=== PATIENT | male | born 1960 | race Caucasian/White ===

== ENCOUNTER 2017-06-08 16:10 | Emergency (ER) | payer MEDICAID ==
[~2017-06-08] VITALS: Ht 182.9 cm; Wt 100.7 kg
--- OUTSIDE RECORDS SUMMARY | 2017-06-08 16:25 | External Medical Summary Rpt | CCD ---
Author Author , XIANG OTOOLE Address Unknown Phone Care Team Providers Care Charter And Tour Bus Driver Name Role Phone [facility] Unavailable Unavailable PHYSICIAN PRA, [facility] PHYSICIAN [facility], Unavailable Unavailable [facility] Unavailable Unavailable CHANTE, [facility] CHANTE Purpose Continuity of Care Document - 06-19-2014 through 2016 Problems Code Diagnosis DOS Provider Status M795 RESIDUAL 03-09-2016 [facility] BODY IN SOFT TISSUE [id number] SUPERFICIAL 03-09-2016 [facility] FOR[facility]IGN N EMERGENCY BODY LT PHYS UPPER ARM INITIAL 4556 UNSPEC 10-24-2014 [facility] WITHOUT PHYSICIAN [place] N 33360 UNSPECIFIED 10-24-2014 [facility] CONSTIPATIO PHYSICIAN N PRA 7062 SEBACEOUS 10-24-2014 [facility] PH[facility] PRA 7213 LUMBOSACRAL 10-24-2014 [facility] 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 7242 LUMBAGO 10-24-2014 [facility] V700 ROUTINE 10-24-2014 [facility] MEDICAL PHYSICIAN [email or web address] CARE FACL 5225 PERIAPICAL 06-19-2014 [facility] WITHOUT CHANTE SINUS 5259 UNSPECIFIED 06-19-2014 [facility] EMERGENCY TEETH&SUPPO PHYS RTING STRUCTURES [id number] JAW PAIN 06-19-2014 [facility] Encounters Encounter Start End Date Code Location Performer Type Date [facility] 5 [facility] 4 4 [facility]
--- OUTSIDE RECORDS SUMMARY | 2017-06-08 16:25 | External Medical Summary Rpt ---
Author Author [employer], [employer] Address Unknown Phone Unavailable
--- OUTSIDE RECORDS SUMMARY | 2017-06-08 16:25 | External Medical Summary Rpt | CCD ---
Author Author , XIANG OTOOLE Address Unknown Phone [email or web address] Care Team Providers Care Tick Eradicator Name Role Phone [facility] Unavailable Unavailable PHYSICIAN PRA, [facility], Unavailable Unavailable [facility] Unavailable Un[facility] Unavailable Unavailable CHANTE, [facility] CHANTE Purpose Continuity of Care Document - 06-19-2014 through 2016 Problems Code Diagnosis DOS Provider Status M795 RESIDUAL 03-09-2016 [facility] RADIOLOGY BODY IN SOFT TISSUE [id number] SUPERFICIAL 03-09-2016 [facility] FOR[facility]IGN N EMERGENCY BODY LT PHYS UPPER ARM INITIAL 4556 UNSPEC 10-24-2014 [facility] WITHOUT PHYSICIAN [place] N 63820 UNSPECIFIED 10-24-2014 [facility] CONSTIPATIO PHYSICIAN N PRA 7062 SEBACEOUS 10-24-2014 [facility] PHYSICIAN PRA 7213 LUMBOSACRAL 10-24-2014 [facility] 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 7242 LUMBAGO 10-24-2014 [facility] V700 ROUTINE 10-24-2014 [facility] MEDICAL PHYSICIAN [email or web address] CARE FACL 5225 PERIAPICAL 06-19-2014 [facility] WITHOUT CHANTE SINUS 5259 UNSPECIFIED 06-19-2014 [facility] DISORDER N EMERGENCY TEETH&SUPPO PHYS RTING STRUCTURES [id number] JAW PAIN 06-19-2014 [facility] Encounters Encounter Start End Date Code Location Performer Type Date [facility] [address] [facility]
--- OUTSIDE RECORDS SUMMARY | 2017-06-08 16:25 | External Medical Summary Rpt | CCD ---
Demographics Preferred Language Argentine Marital Status Unknown Zoroastrianism Affiliation Unknown Race Unknown Ethnic Group Unknown Author Author , XIANG OTOOLE Address Unknown Phone Immunization No patient found.
--- OUTSIDE RECORDS SUMMARY | 2017-06-08 16:25 | External Medical Summary Rpt | CCD ---
Author Author , XIANG OTOOLE Address Unknown Phone Care Team Providers Care Meat Products Demonstrator Name Role Phone [facility] Unavailable Unavailable PHYSICIAN PRA, [facility] PHYSICIAN PRA [facility], Unavailable Unavailable [facility]available Un[facility] Unavailable Unavailable CHANTE, [facility] CHANTE Purpose Continuity of Care Document - 06-19-2014 through 2016 Problems Code Diagnosis DOS Provider Status M795 RESIDUAL 03-09-2016 [facility] BODY IN SOFT TISSUE [id number] SUPERFICIAL 03-09-2016 [facility] FOREIGN N EMERGENCY BODY LT PHYS UPPER ARM INITIAL 4556 UNSPEC 10-24-2014 [facility] WITHOUT PHYSICIAN MENTION PRA COMPLICATIO N 74606 UNSPECIFIED 10-24-2014 [facility] CONSTIPATIO PHYSICIAN N PRA 7062 SEBACEOUS 10-24-2014 [facility] PH[facility]IAN PRA 7213 LUMBOSACRAL 10-24-2014 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 7242 LUMBAGO 10-24-2014 [facility] RADI[facility] V700 ROUTINE 10-24-2014 [facility] MEDICAL PHYSICIAN [email or web address]@[facility] CARE FACL 5225 PERIAPICAL 06-19-2014 [facility] WITHOUT CHANTE SINUS 5259 UNSPECIFIED 06-19-2014 [facility] EMERGENCY TEETH&SUPPO PHYS RTING STRUCTURES [id number] JAW PAIN 06-19-2014 [facility] Encounters Encounter Start End Date Code Location Performer Type Date [facility] 5 [facility] 4 4 [facility]
--- OUTSIDE RECORDS SUMMARY | 2017-06-08 16:25 | External Medical Summary Rpt | CCD ---
Demographics Preferred Language [place] Citizen Marital Status Unknown Jainism Affiliation Unknown Race Unknown Ethnic Group Unknown Author Author , XIANG OTOOLE Address Unknown Phone Immunization No patient found.
--- OUTSIDE RECORDS SUMMARY | 2017-06-08 16:25 | External Medical Summary Rpt | CCD ---
Author Author , XIANG OTOOLE Address Unknown Phone [email or web address] Care Team Providers Care Circle Beveler Name Role Phone [facility] Unavailable Unavailable PHYSICIAN PRA, [facility], Unavailable Unavailable [facility] Unavailable Unavailable [facility] Unavailable Unavailable CHANTE, [facility] CHANTE Purpose Continuity of Care Document - 06-19-2014 through 2016 Problems Code Diagnosis DOS Provider Status M795 RESIDUAL 03-09-2016 [facility] RADIOLOGY BODY IN SOFT TISSUE [id number] SUPERFICIAL 03-09-2016 [facility] FOREIGN N EMERGENCY BODY LT PHYS UPPER ARM INITIAL 4556 UNSPEC 10-24-2014 [facility] WITHOUT PHYSICIAN MENTION PRA COMPLICATIO N 61588 UNSPECIFIED 10-24-2014 [facility] CONSTIPATIO PHYSICIAN N PRA 7062 SEBACEOUS 10-24-2014 [facility] PH[facility]ICIAN PRA 7213 LUMBOSACRAL 10-24-2014 [facility] 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 7242 LUMBAGO 10-24-2014 [facility] V700 ROUTINE 10-24-2014 [facility] MEDICAL PHYSICIAN [email or web address] CARE FACL 5225 PERIAPICAL 06-19-2014 [facility] WITHOUT CHANTE SINUS 5259 UNSPECIFIED 06-19-2014 [facility] DISORDER N EMERGENCY TEETH&SUPPO PHYS RTING STRUCTURES [id number] JAW PAIN 06-19-2014 [facility] Encounters Encounter Start End Date Code Location Performer Type Date [facility] 5 [facility] 4 4 [facility]
--- NOTE | 2017-06-08 17:26 | Urgent Treatment Center Report ---
History of Present Issue Date/Time Seen by Provider 06/08/17 1724 Visit Reason Pt arrived:Walked Presenting Problem:ITCHING ALL OVER EVERY NIGHT Location if Accident: Onset of symptoms date/time:/ or onset unknown for:MEDICAL HX UNKNOWN Have you (or family members/close friends) recently traveled outside the [place]? N If Yes, where/when: Have you had exposure to infectious disease within the past month? TB? Other? Specify: Patient state that every night when he lays down he begans to itch State that he thought he may have scabies. State that he has washed his blankets sheets, and clothing and cleaned house and sprayed the house for bugs and insects State that he has never seen anything but unsure why he only itches at night ALLERGIES Coded Allergies: No Known Allergies (06/08/17) History Medical History General CAD? No Angina: No TX: No Hypertension? No Hyperlipidemia? No CHF? No DVT? No PE? No COPD? No Asthma? No Anemia? No GERD? No Gastric ulcers? No GI Bleed? No Hernia? No Thyroid Problems? No Hypothyroidism? No CVA? No Seizures? No Diabetes? No Renal Insuffiency? No UTI? No Stones? No BPH? No GB Disease: No Nephritic Syndrome? No Asplenia? No Hepatitis? No Sickle Cell Disease? No Arthritis? No Migraines? No Cataracts? No Glaucoma? No MRSA? No HIV? No TB? No Anxiety? No Depression? No Cancer? No More? No Immunization HX DT/Tetanus Unknown Surgical Hx Previous Surgery?N Social History Smoking Hx Smoker: Never Smoker Tobacco: No Review of Systems All Other Systems Reviewed and Negative Skin other (Itching) Physical Exam Vital Signs Vital Signs Date Time Temp Pulse Resp B/P Pulse O2 O2 Flow FiO2 Ox Delivery Rate 06/08 1716 97.4 60 18 108/66 97 General Appearance normal appearance, WD/WN, no apparent distress Respiratory Status Yes: trachea midline, chest symmetrical, non tender chest. No: respiratory distress. Lung Sounds bilateral: normal breath sounds, lungs clear. Cardiovascular normal exam, regular rate/rhythm, no peripheral edema Neurologic alert, normal exam, oriented x 3 Skin State that he only has itching at night and after he gets up out of bed rash goes away and itching stops no rash observed on patient skin at this time and denies itching Medical Decision Making LABS/Meds/Orders Pt receiving controlled substance in ED? No Progress [facility] Progress Notes Comment No rash, no redness noted on patient skin. Patient educated on bug that bite at night, recommended that they have the house inspected and see if there may be something that he is cleaning his bed linen with that he may be allergic to. Also if symptoms persist may want to consider changing mattress and bed linens Would recommend that they rewash everything in something that they are sure he isn't allergic too Departure Departure Time of Disposition 1737 Disposition DC Home or Self Care(routine) Clinical Impression Primary Impression: Itching Condition STABLE Referrals [facility] Patient Instructions DI for Itching Additional Instructions Clean bed linen again and change all bedding to see if you may be allergic to something you have cleaned with If symptoms persist have someone come in and inspect your bedroom to make sure that you do not have any insect infestation that may be bitting you at night Follow up with dermatology if rash/itching continues Return if needed Clean mattress well and disinfect and if symtpoms persist consider replacing mattress Use over the counter Benadryl/benadryl cream for itching and rash Discharge Counseling Counseled pt/family regarding diagnosis, home care, follow up needs, alcohol counseling,> 3min at [id number]
[2017-06-08 17:42] VITALS: BP 108/66
== END 2017-06-08 17:42 | disposition home or self-care (01) ==
LOC: UTC 16:10
DX: L29.9 Pruritus, unspecified (principal)